=== PATIENT | female | born 1990 | race Caucasian/White ===

== ENCOUNTER 2022-06-02 08:08 | Day surgery (SDC) | payer BC ==
[~2022-06-02 08:08] MED LIST: Albuterol 0.083% 2.5 MG/3 ML Neb Soln NEB PRN; HYDROmorphone 1 MG/ML Syringe IVPUSH PRN; Lactated Ringers 1,000 ML IV SCH; Metoclopramide 10 MG/2 ML SDV IVPUSH PRN; Morphine 4 MG/ML VIAL IVPUSH PRN; Naloxone 0.4 MG/ML SDV IVPUSH PRN; Ondansetron 4 MG/2 ML SDV IVPUSH PRN; Sodium Chloride 0.9% 10 ML Syringe FLUSH PRN; Sodium Chloride 0.9% 2.5 ML Syringe FLUSH PRN; Sodium Chloride 0.9% 20 ML SDV IV PRN; fentaNYL 50 MCG/ML SDV IVPUSH PRN
[2022-06-02] MEDS ORDERED: fentaNYL 100 MCG/2 ML SDV ONE (08:50)
[2022-06-02] MEDS ORDERED: Propofol 200 MG/20 ML SDV ONE (08:50)
[2022-06-02] MEDS ORDERED: Ketorolac 30 MG/ML SDV ONE (11:23)
[2022-06-02] MEDS ORDERED: Ondansetron 4 MG/2 ML SDV ONE (11:23)
== END 2022-06-02 13:08 | disposition home or self-care (01) ==
LOC: MW.SDS 08:08
PROVIDERS: ATTEND Obstetrics & Gynecology
DX: O02.1 Missed abortion (principal); O02.9 Abnormal product of conception, unspecified; Z88.0 Allergy status to penicillin; Z79.899 Other long term (current) drug therapy
CPT/HCPCS: 36415; 59812; 85027; J1885; J2405; J2704; J3010; J7120; 01965

== ENCOUNTER 2023-10-20 10:31 | Inpatient (IN) | payer BC ==
[2023-10-20] MEDS ORDERED: Nalbuphine 10 MG/0.5 ML Syringe IVPUSH PRN (10:43)
[2023-10-20] MEDS ORDERED: Water For Irrigation,Sterile 1,000 ML Container IRR PRN (10:43)
[2023-10-20] MEDS ORDERED: Carboprost Tromethamine 250 MCG/1 mL Vial IM PRN (10:43)
[2023-10-20] MEDS ORDERED: Tranexamic Acid IN NACL,ISO-OS 1,000 MG in Premix Bag 1 BAG IV PRN ×2 (10:43)
[2023-10-20] MEDS ORDERED: Lidocaine 1% 50 ML MDV INJECT PRN (10:43)
[2023-10-20] MEDS ORDERED: Methylergonovine 0.2 MG/1 ML Amp IM PRN (10:43)
[2023-10-20] MEDS ORDERED: Terbutaline 1 MG/ML SDV SUBCUT PRN (10:43)
[2023-10-20] MEDS ORDERED: Misoprostol 25 MCG (1/4 of 100 MCG) Tab VAG PRN ×2 (10:43)
[2023-10-20] MEDS ORDERED: Misoprostol 200 MCG Tab PO PRN (10:43)
[2023-10-20] MEDS ORDERED: Oxytocin/0.9 % Sodium Chloride 30 UNIT/500 ML BAG IV SCH ×2 (10:45)
[2023-10-20] MEDS ORDERED: Phenylephrine HCl 0.5 MG/5 ML AMP IVPUSH PRN (11:02)
[2023-10-20] MEDS ORDERED: ePHEDrine 50 MG/ML SDV IVPUSH PRN ×2 (11:02)
[2023-10-20] MEDS ORDERED: Ropivacaine HCl/PF 400 MG in Premix Bag 1 BAG EPIDUR SCH (11:15)
[2023-10-20 11:42] LABS: HEMATOCRIT 31.3 % (37.0-47.0); HEMOGLOBIN 10.9 g/dL (12.0-16.0); MEAN CORPUSCULAR HEMOGLOBIN 32.2 pg (28.0-32.0); MEAN CORPUSCULAR HGB CONC 34.8 g/dL (32.0-36.0); MEAN CORPUSCULAR VOLUME 92.6 fL (83.0-99.0); MEAN PLATELET VOLUME 9.5 fL (9.4-12.3); PLATELET COUNT,PLT 175 K/uL (150-400); RED BLOOD CELL COUNT 3.38 M/uL (4.10-5.30); WHITE BLOOD CELL COUNT,WBC 11.18 K/uL (3.9-11.3)
[2023-10-20 12:02] LABS: A/G RATIO 0.9 (0.9-1.6); ALANINE AMINOTRANSFERASE,ALT 18 IU/L (14-63); ALBUMIN 2.7 g/dL (3.4-5.0); ALKALINE PHOSPHATASE 108 U/L (46-116); ASPARTATE AMNIOTRANSFERASE,AST 20 IU/L (15-37); BILIRUBIN TOTAL 0.2 mg/dL (0.2-1.0); BLOOD UREA NITROGEN,BUN 6 mg/dL (7.0-18.0); CALCIUM 8.4 mg/dL (8.5-10.1); CHLORIDE,CL 105 mmol/L (98-107); CREATININE 0.6 mg/dL (0.6-1.0); GLUCOSE RANDOM 119 mg/dL (74-106); POTASSIUM,K 3.6 mmol/L (3.5-5.1); PROTEIN TOTAL,TP 5.8 g/dL (6.4-8.2); SODIUM,NA 138 mmol/L (136-145)
[2023-10-20 12:03] LABS: ESTIMATED GFR 123 mL/min (>60)
[2023-10-20 12:18] LABS: APPEARANCE,URINE CLEAR; BILIRUBIN,URINE NEGATIVE (NEGATIVE); COLOR,URINE YELLOW; GLUCOSE,URINE NEGATIVE (NEGATIVE); KETONES,URINE NEGATIVE (NEGATIVE); LEUKOCYTE ESTERASE,URINE TRACE (NEGATIVE); NITRITE,URINE NEGATIVE (NEGATIVE); OCCULT BLOOD,URINE NEGATIVE (NEGATIVE); PROTEIN,URINE NEGATIVE (NEGATIVE); UROBILINOGEN,URINE 0.2 EU/dL (<2.0)
[2023-10-20 12:31] LABS: BACTERIA,URINE FEW (NEGATIVE); EPITHELIAL CELLS,URINE MANY (NONE-FEW); WBC,URINE 0-1 (0-5/HPF)
[2023-10-20] MEDS: Ondansetron 4 MG/2 ML SDV IVPUSH PRN (14:37)
[2023-10-20] MEDS ORDERED: NIFEdipine 10 MG Cap PO STA (17:06)
[2023-10-20] MEDS: Lactated Ringers 1,000 ML IV SCH ×2 (17:38→23:43)
[2023-10-20] MEDS: Labetalol 100 MG Tab PO SCH (20:33)
[2023-10-21] MEDS ORDERED: dexmedeTOMIDine HCl 200 MCG/2 ML SDV ONE (04:59)
[2023-10-21] MEDS: Lactated Ringers 1,000 ML IV SCH ×2 (05:02→11:37)
[2023-10-21] MEDS: Labetalol 100 MG Tab PO SCH ×2 (08:48→21:34)
[2023-10-21] MEDS: Ondansetron 4 MG/2 ML SDV IVPUSH PRN (11:28)
[2023-10-21] MEDS ORDERED: Lanolin 100% Cream 7 GM Tube TOP PRN (13:46)
[2023-10-21] MEDS ORDERED: oxyCODONE 5 MG Tab PO PRN (13:46)
[2023-10-21] MEDS ORDERED: Ibuprofen 800 MG Tab PO PRN (13:46)
[2023-10-21] MEDS ORDERED: Witch Hazel Medicated Pads 40/Jar TOP PRN (13:46)
[2023-10-21] MEDS ORDERED: Docusate Sodium 100 MG Cap PO PRN (13:46)
[2023-10-21] MEDS ORDERED: Benzocaine/Menthol 20%-0.5% Spray 78 GM Cannister TOP PRN (13:46)
[2023-10-21 13:56] LABS: PH,UMBILICAL ARTERIAL 7.22 (7.18-7.38); PH,UMBILICAL VENOUS 7.354 (7.25-7.45)
[2023-10-21] MEDS ORDERED: Oxytocin/0.9 % Sodium Chloride 30 UNIT/500 ML BAG ONE (14:00)
[2023-10-21] MEDS: Acetaminophen 500 MG Tab PO PRN (19:53)
[2023-10-22] MEDS: Acetaminophen 500 MG Tab PO PRN ×2 (05:28→15:05)
[2023-10-22 06:03] LABS: HEMATOCRIT 29.7 % (37.0-47.0); HEMOGLOBIN 10.5 g/dL (12.0-16.0)
[2023-10-22] MEDS: Labetalol 100 MG Tab PO SCH (09:46)
[2023-10-23] MEDS ORDERED: Prenatal Multivitamin with Calcium/Folic Acid/Iron Tab PO SCH (09:00)
== END 2023-10-22 16:50 | disposition home or self-care (01) | DRG 560 ==
LOC: MW.OB 10:31 → OBSVTOIN 10-21 13:19 → MW.OB 10-21 19:37
PROVIDERS: ADMIT Obstetrics & Gynecology; ATTEND Obstetrics & Gynecology
PROC: 10E0XZZ Delivery of Products of Conception, External Approach (ICD-10-PCS; principal; 2023-10-21)
PROC: 3E0R3BZ Introduction of Anesthetic Agent into Spinal Canal, Percutaneous Approach (ICD-10-PCS; 2023-10-21)
PROC: 00HU33Z Insertion of Infusion Device into Spinal Canal, Percutaneous Approach (ICD-10-PCS; 2023-10-21)
PROC: 0KQM0ZZ Repair Perineum Muscle, Open Approach (ICD-10-PCS; 2023-10-21)
PROC: 3E0P7VZ Introduction of Hormone into Female Reproductive, Via Natural or Artificial Opening (ICD-10-PCS; 2023-10-21)
DX: O13.4 Gestational [pregnancy-induced] hypertension without significant proteinuria, complicating childbirth (principal); Z37.0 Single live birth; Z3A.37 37 weeks gestation of pregnancy; O70.1 Second degree perineal laceration during delivery
CPT/HCPCS: 36415; 51702; 59025; 59409; 80053; 81001; 82803; 85014; 85018; 85027; 86592; 86850; 86900; 86901; A9270-GY; J2300; J2405; J2590; J2795; J3490; J7120